=== PATIENT | female | born 1985 | race Caucasian/White ===

== ENCOUNTER 2017-05-18 15:07 | Emergency (ER) | payer OTHER ==
[2017-05-18] MEDS ORDERED: Doxycycline 100 MG Cap PO ONE (16:44)
--- NOTE | 2017-05-18 16:45 | EDM.PDOC ---
ED HPI GENERAL MEDICAL PROBLEM - General Chief Complaint: Eye Problems Stated Complaint: POSS EYE MITES Time Seen by Provider: 05/18/17 16:31 Source of Information: Reports: Patient History Limitations: Reports: No Limitations - History of Present Illness INITIAL COMMENTS - FREE TEXT/NARRATIVE: Patient is a 32 year old female who presents to the E.D. complaining of a itchy rash to the face and body. Patient states the rash has been present for several months but notes rash has spread to the body over the past few weeks. Denies recent travel to [facility], out of country travel, , new lotions/soaps/detergents/ medicines, or any additional complaints. Bilateral Ear Pain Score (Numeric/FACES): 7 - Related Data Allergies Allergy/AdvReac Type Severity Reaction Status Date / Time No Known Allergies Allergy Verified 05/18/17 15:29 Home Meds: Home Meds Cyclobenzaprine [Flexeril] 10 mg PO TID 05/18/17 [History] Doxycycline [Vibramycin] 100 mg PO Q12HR #14 cap 05/18/17 [Rx] Naproxen 500 mg PO BID 05/18/17 [History] Past Medical History Cardiovascular History: Reports: Heart Murmur [employer] History: Reports: Other OB/BYN History: preg x 3 Neurological History: Reports: Headaches, Chronic - Past Surgical History Female Surgical History: Reports: Tubal Ligation Social & Family History - Family History Family Medical History: Noncontributory - Tobacco Use Smoking Status *Q: Current Every Day Smoker Years of Tobacco use: 14 Packs/Tins Daily: 1 - Caffeine Use Caffeine Use: Reports: Coffee, Energy Drinks, Soda, Tea - Recreational Drug Use Recreational Drug Use: No ED ROS GENERAL - Review of Systems Review Of Systems: ROS reveals no pertinent complaints other than HPI. Constitutional: Reports: No Symptoms HEENT: Reports: No Symptoms Respiratory: Reports: No Symptoms Cardiovascular: Reports: No Symptoms GI/Abdominal: Reports: No Symptoms : Reports: No Symptoms Musculoskeletal: Reports: No Symptoms Skin: Reports: Rash ED EXAM GENERAL W FULL EYE - Physical Exam Exam: See Below Exam Limited By: No Limitations General Appearance: Alert, WD/WN, No Apparent Distress Eye Exam: Bilateral Eye: EOMI, PERRL Eyelids: Bilateral: Normal Appearance Conjunctiva & Sclera: Bilateral: Normal Appearance Pupillary Size: Bilateral: 4 mm Pupillary Reaction: Bilateral: Brisk Ears: Normal External Exam, Normal Canal, Hearing Grossly Normal Nose: Normal Inspection Throat/Mouth: Normal Oropharynx, Normal Voice, No Airway Compromise Head: Atraumatic, Normocephalic Neck: Normal Inspection, Supple Respiratory/Chest: No Respiratory Distress, Lungs Clear, Normal Breath Sounds, No Accessory Muscle Use Cardiovascular: Normal Peripheral Pulses, Regular Rate, Rhythm GI/Abdominal: Normal Bowel Sounds, Soft, Non-Tender Back Exam: Normal Inspection, Full Range of Motion Extremities: Non-Tender Neurological: Alert, Oriented, Normal Cognition, No Motor/Sensory Deficits Psychiatric: Normal Affect, Anxious Skin Exam: Warm, Dry, Intact, Normal Color, Rash (folliculitis to the face, tao , and neck. excoriations present. no drainage or burrowing noted. ) Course - Vital Signs Last Recorded V/S: Last Vital Signs Temp 97.3 F 05/18/17 15:24 Pulse 110 H 05/18/17 15:24 Resp 18 05/18/17 15:24 BP 129/96 H 05/18/17 15:24 Pulse Ox 100 05/18/17 15:24 - Orders/Labs/Meds Meds: Medications Discontinued Medications Generic Name Dose Route Start Last Admin Trade Name Freq PRN Reason Stop Dose Admin Doxycycline Hyclate 100 mg 05/18/17 16:44 Vibramycin PO 05/18/17 16:45 ONETIME ONE - Re-Assessments/Exams Free Text/Narrative Re-Assessment/Exam: Patient has a history of IV heroin use. On examination findings are concerning for methamphetamine use. There is some needle tracks located to the left antecubital space with old bruising in place. She states this is chronic. Highly unlikely. Ordered urine drug tox. 05/18/17 16:49 Patient refuses urine drug tox. Will discharge patient home. Departure - Departure Time of Disposition: 16:49 Disposition: Home, Self-Care 01 Condition: Good Clinical Impression: Folliculitis - Discharge Information Prescriptions: Doxycycline [Vibramycin] 100 mg PO Q12HR #14 cap Instructions: Pruritus Referrals: PCP,None [Primary Care Provider] - Forms: ED Department Discharge, ED Return to Work/School Form Additional Instructions: Take the full course of antibiotics as prescribed. Do not itch the lesions. Take Benadryl 50 mg every 6 hours to subside the itching. Follow-up with a PCP at [facility] in [place] next week for reevaluation. Return to the ED for any new or worsening symptoms.
== END 2017-05-18 17:10 | disposition home or self-care (01) ==
LOC: JD.ED 15:07
DX: L73.9 Follicular disorder, unspecified (principal); F17.210 Nicotine dependence, cigarettes, uncomplicated
CPT/HCPCS: 99283